=== PATIENT | female | born 1970 | race Caucasian/White ===

== ENCOUNTER → 2016-04-29 | Outpatient (CLI) | payer OTHER ==
--- NOTE | 2016-04-29 15:01 | MA ---
Screening Digital Mammogram With iCAD Analysis Clinical Indications: Routine screening. Technique: Standard cephalocaudal and mediolateral oblique projections were obtained. This examinatio n was processed by the iCAD computer aided detection system. Comparison: February 2015, February 2014, January 2013, November 2011. Breast density: Type D; Extremely dense. Findings: CAD was reviewed. No masses, suspicious calcifications or other signs of malignancy are id entified. There has been no significant change in the appearance of either breast. Impression: Negative mammogram. BI-RADS 1. Recommendation: Routine screening in one year as long as physical examination is negative in this pat ient with extremely dense breasts. [facility] will send a result letter to the patient. Dense breast parenchyma diminishes mammographic sensitivity. Negative mammography should not preclude additional workup of a clinically suspicious finding. The patient's information is entered into a reminder system with a target due date for her next mammo gram.
== END ==
LOC: FIMAGING 09:57
DX: Z12.31 Encounter for screening mammogram for malignant neoplasm of breast (principal)
CPT/HCPCS: G0202

== ENCOUNTER 2017-02-13 12:45 | Emergency (ER) | payer OTHER ==
[2017-02-13 13:07] VITALS: TEMP 98.2
--- NOTE | 2017-02-13 13:22 | CPEKG ---
Heart Rate: 72 RR Interval: 833 P-R Interval: 136 QRSD Interval: 86 QT Interval: 420 QTC Interval: 460 P [place]: 70 QRS [place]: 43 T Wave [place]: 38 EKG Severity - NORMAL ECG - EKG Impression: SINUS RHYTHM Electronically Signed By: Yomaira Quiroz 13-Feb-2017 17:39:30
[2017-02-13 13:59] LABS: % IMMATURE GRANULYOCYTES 0.3 % (0.0-1.1); ABSOLUTE IMMATURE GRANULOCYTES 0.04 10^3/uL (0.00-0.10); ADD DIFF? NO; ADD MORPH? NO; ADD SCAN? NO; ATYPICAL LYMPHOCYTE FLAG 0 (0-99); FRAGMENT RBC FLAG 0 (0-99); HEMATOCRIT 42.1 % (38.0-47.0); HEMOGLOBIN 14.4 g/dL (12.6-16.3); LEFT SHIFT FLG 0 (0-99); LIPEMIA HEMOLYSIS FLAG 90 (0-99); MEAN CELL HEMOGLOBIN 30.8 pg (27.9-34.1); MEAN CELL HEMOGLOBIN CONCENTR. 34.2 g/dL (32.4-36.7); MEAN CELL VOLUME 90.1 fL (81.5-99.8); MEAN PLATELET VOLUME 9.9 fL (8.7-11.7); PLATELET CLUMPS FLAG 0 (0-99); PLATELET COUNT 245 10^3/uL (150-400); RED BLOOD CELL COUNT 4.67 10^6/uL (4.18-5.33); RED CELL DISTRIBUTION WIDTH 12.2 % (11.5-15.2)
[2017-02-13 14:03] LABS: ANION GAP 14 mEq/L (8-16); CALCIUM 9.8 mg/dL (8.5-10.4); CARBON DIOXIDE 24 mEq/l (22-31); CHLORIDE 101 mEq/L (97-110); GLOMERULAR FILTRATION RATE 60; GLUCOSE 95 mg/dL (70-100); POTASSIUM 3.4 mEq/L (3.5-5.2); SODIUM 139 mEq/L (134-144)
[2017-02-13 14:07] LABS: INR 1.01 (0.83-1.16); PROTIME(PATIENT) 13.2 SEC (12.0-15.0)
--- NOTE | 2017-02-13 14:07 | EDPHY ---
HPI/HX/ROS/PE/MDM Narrative: CHIEF COMPLAINT: Transient speech difficulty, visual changes HISTORY OF PRESENT ILLNESS: This patient is a 46 year old female arriving with her family for evaluation of speech difficulty and visual changes onset two hours prior to arrival. The patient states she has been under lots of pressure at work. Today, she began to feel she could not organize her thoughts. She tried to say "I think I need to take a break and call my " but could not say the appropriate words. This lasted around 5 minutes, and she could not remember important facts like her boss's name. This made her feel very anxious. She felt her peripheral vision was impaired and lightheaded as if she were going to faint. She describes this as tunnel vision with some sparkles on the periphery. She denies diplopia. She felt better after drinking some water. Currently, she feels well. She denies chest pains, palpitations, headache, paresthesias in her face or extremities, or vomiting. No history of migraines or recent neck pain or manipulations. No known family history of stroke, CAD, or clotting disorders. No fever, chills, chest pain, shortness of breath, palpitations, vomiting, diarrhea, urinary complaints, headache, lightheadedness. 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 She did not feel any PVCs today. REVIEW OF SYSTEMS: Aside from elements discussed in the HPI, a comprehensive 10-point review of systems was reviewed and is negative. PAST MEDICAL HISTORY: History of PVCs (Bystolic). Hypertension. SOCIAL HISTORY: Daughter and at bedside. Nonsmoker. No alcohol, marijuana, or illicit drug use. VITAL SIGNS: Reviewed by me GENERAL: Well-developed, well-nourished, resting comfortably in no respiratory distress. HEENT: Atraumatic. Eyes: No icterus, no injection. PERRL, EOMI. Mouth: moist mucous membranes. No erythema or lesions. Neck: supple with no adenopathy. LUNGS: Clear to auscultation bilaterally, no wheezes, rhonchi or rales. CARDIAC: Regular rate and rhythm, no rubs, murmurs or gallops. ABDOMEN: Soft, nontender, nondistended, bowel sounds normal. BACK: No CVA tenderness. EXTREMITIES: No trauma. No edema. Range of motion is normal throughout. NEURO: Alert and oriented, CN 2-12 intact. Motor and sensation intact throughout. Normal, fluent speech. No wordfinding difficulty. SKIN: Warm and dry, no rash. PSYCHIATRIC: Normal mentation, no agitation. Portions of this note were transcribed by a medical practice administrator. I personally performed a history, physical exam, medical decision making, and confirmed accuracy of information the transcribed note. ED Course: 46 year old female presents following a now-resolved episode of word-finding difficulty and visual changes. Exam unremarkable. No headache. She is currently asymptomatic. Plan for EKG, labs including CBC, BMP, coag. EKG: NSR, no ectopy. No ectopy on monitor. Labs ok except slightly low potassium. 14:25 Spoke with neurology, Dr Tee. Plan for MRI. If normal, plan to discharge home in good condition. MRI normal, no evidence of CVA. Suspect atypical migraine vs TIA. Will follow up with Dr Tee. Patient reassured. MDM: Diff dx considered included arrythmia, TIA, CVA, atypical migraine, anxiety. - Data Points Imaging Results: MRI Brain: Impression: 1. Solitary nonspecific white matter focus, likely of no significance in a middle aged male. 2. No acute stroke or bleed. Dictated By: Rob Sykes MD Imaging: Discussed imaging studies w/ pump and still operator Radiologist Laboratory Results: Laboratory Results 02/13/17 13:20 02/13/17 13:20 General Time Seen by Provider: 02/13/17 13:41 Initial Vital Signs: Initial Vital Signs Temperature (C) 36.8 C 02/13/17 13:00 Heart Rate 78 02/13/17 13:00 Respiratory Rate 15 02/13/17 13:00 Blood Pressure 137/80 H 02/13/17 13:00 O2 Sat (%) 99 02/13/17 13:00 O2 Delivery Mode Room Air Allergies/Adverse Reactions: No Known Allergies Allergy (Unverified 02/13/17 12:59) Home Medications: Medication Instructions Recorded Bystolic 02/13/17 Departure - Departure Disposition: Home, Routine, Self-Care Clinical Impression: Atypical migraine, Word finding difficulty, possible tia Condition: Good Instructions: Transient Ischemic Attack (ED), Migraine Headache (ED) Additional Instructions: Please drink plenty of fluid. Please get plenty of rest. Your potassium is just a little bit low. Please insure you are eating plenty of vegetables. You may follow up with Dr. Tee please for further evaluation and treatment as needed. If your symptoms recur, or if you develops other symptoms of weakness, dizziness , numbness, word-finding difficulty, or visual problems, please return to the emergency department or seek care urgently. Referrals: JESICA LEIGH [Primary Care Provider] - As per Instructions Dave Tee DO [Doctor of Osteopathy] - As per Instructions (Follow-up next week for re-evaluation.) Report Scribed for: Yomaira Quiroz Report Scribed by: Maura Diaz Date of Report: 02/13/17 Time of Report: 14:02
[2017-02-13 16:21] VITALS: BP 98/78; PULSE 73; RESP 16; O2SAT 98
== END 2017-02-13 16:21 | disposition home or self-care (01) ==
DX: G43.809 Other migraine, not intractable, without status migrainosus (principal); R47.01 Aphasia; I10 Essential (primary) hypertension

== ENCOUNTER → 2017-05-12 | Outpatient (CLI) | payer OTHER | LOC: FIMAGING 12:00 | PROVIDERS: ATTEND Obstetrics & Gynecology | DX: Z12.31 Encounter for screening mammogram for malignant neoplasm of breast (principal) ==

== ENCOUNTER → 2018-06-17 | Outpatient (CLI) | payer OTHER | LOC: FIMAGING 11:31 | PROVIDERS: ATTEND Obstetrics & Gynecology | DX: Z12.31 Encounter for screening mammogram for malignant neoplasm of breast (principal) ==